=== PATIENT | male | born 1960 | race Caucasian/White ===

== ENCOUNTER 2021-04-28 10:11 | Outpatient (REF) | payer OTHER, SELFPAY ==
[2021-04-28 11:22] LABS: COVID-19 Test Negative (Negative)
== END 2021-04-28 10:12 | disposition home or self-care (01) ==
LOC: HO.LAB 10:11
PROVIDERS: PCP Internal Medicine; Visit Provider Internal Medicine
DX: Z20.822 Contact with and (suspected) exposure to COVID-19 (principal)
CPT/HCPCS: 36415; 87635; C9803

== ENCOUNTER 2021-08-12 09:02 | Outpatient (REF) | payer OTHER, SELFPAY ==
[2021-08-12 10:22] LABS: COVID-19 Test Negative (Negative)
== END 2021-08-12 09:03 | disposition home or self-care (01) ==
LOC: HO.LAB 09:02
PROVIDERS: Visit Provider Internal Medicine
DX: Z20.822 Contact with and (suspected) exposure to COVID-19 (principal)
CPT/HCPCS: 36415; 87635; C9803